=== PATIENT | female | born 1985 | race Two or more races ===

== ENCOUNTER 2023-01-06 14:30 | Emergency (ER) | payer OTHER, MEDICAID ==
[~2023-01-06] VITALS: Ht 144.8 cm; Wt 48.5 kg
[2023-01-06 17:10] LABS: BASOPHILS % (AUTO) 0.6 % (0.0-2.0); EOSINOPHILS # (AUTO) 0.1 K/uL (0.0-0.7); EOSINOPHILS % (AUTO) 1.1 % (0.0-6.0); HEMATOCRIT 27 % (33-45); HEMOGLOBIN 7.7 g/dL (11.5-14.8); LYMPHOCYTES # (AUTO) 1.7 K/uL (0.8-4.8); LYMPHOCYTES % (AUTO) 23.2 % (20.0-44.0); MEAN CORPUSCULAR HEMOGLOBIN 18 PG (26.0-33.0); MEAN CORPUSCULAR HGB CONC 29 g/dl (31.0-36.0); MEAN CORPUSCULAR VOLUME 62 fL (82-100); MONOCYTES # (AUTO) 0.5 K/uL (0.1-1.30); MONOCYTES % (AUTO) 6.4 % (2.0-12.0); NEUTROPHILS % (AUTO) 68.7 % (43.0-81.0); PLATELET COUNT (AUTO) 372 K/uL (150-450); RED BLOOD CELL COUNT(AUTO) 4.31 MIL/uL (4.0-5.2); RED CELL DISTRIBUTION WIDTH 20.3 % (11.5-15.0); WHITE BLOOD COUNT (AUTO) 7.3 K/uL (4.3-11.0)
[2023-01-06 17:32] LABS: CALCIUM, SERUM 8.7 mg/dL (8.5-10.1); CREATININE 0.6 mg/dL (0.6-1.3); POTASSIUM 4.2 mmol/L (3.5-5.1)
[2023-01-06] MEDS ORDERED: FERR-68 PO (17:55)
[2023-01-06 18:54] VITALS: BP 131/88; TEMP 98.7; O2SAT 100
[2023-01-06 18:56] LABS: ANISOCYTOSIS 1+; BAND % (MANUAL) 2 % (0.0-5.0); HYPOCHROMASIA 1+; LYMPHOCYTES % (MANUAL) 19 % (16-48); MONOCYTES % (MANUAL) 4 % (0-11.0); NEUTROPHILS % (MANUAL) 75 (42-76); OVALOCYTES 1+; PLATELET ESTIMATE ADEQUATE
[2023-01-06 18:57] LABS: TARGET CELLS RARE
== END 2023-01-06 18:54 | disposition home or self-care (01) ==
LOC: ER 14:44
DX: D64.9 Anemia, unspecified (principal); M79.10 Myalgia, unspecified site
CPT/HCPCS: 36415; 80048-TC; 85025-TC

== ENCOUNTER 2023-08-25 11:27 | Emergency (ER) | payer OTHER, MEDICAID ==
[~2023-08-25] VITALS: Ht 144.8 cm; Wt 55.8 kg
[~2023-08-25 11:27] MED LIST: FERR-68 PO
[2023-08-25 11:31] VITALS: BP 149/85; TEMP 98.4
[2023-08-25] MEDS ORDERED: CYCL5TAB PO (12:31)
[2023-08-25] MEDS ORDERED: IBUP-1955 PO (12:31)
[2023-08-25] MEDS ORDERED: LIDO30AD10 TP (12:31)
[2023-08-25] MEDS ORDERED: HYDR-4303 PO (12:31)
[2023-08-25] MEDS ORDERED: KETOROLAC TROMETHAMINE 15 MG/ML VIAL ONE (12:49)
[2023-08-25] MEDS ORDERED: HYDROCODONE/APAP 5/325MG TABLET ONE (12:50)
[2023-08-25] MEDS: KETOROLAC TROMETHAMINE 15 MG/ML VIAL IM ONE (12:55)
[2023-08-25] MEDS: HYDROCODONE/APAP 5/325MG TABLET PO ONE (12:55)
[2023-08-25 12:58] VITALS: O2SAT 98
== END 2023-08-25 12:59 | disposition home or self-care (01) ==
LOC: ER 11:29
DX: M75.32 Calcific tendinitis of left shoulder (principal); M54.12 Radiculopathy, cervical region; Z79.899 Other long term (current) drug therapy
CPT/HCPCS: 99283; 96372; J1885

== ENCOUNTER 2023-09-20 10:30 | Emergency (ER) | payer OTHER, MEDICAID ==
[~2023-09-20] VITALS: Ht 144.8 cm; Wt 62.1 kg
[~2023-09-20 10:30] MED LIST changes: +CYCL5TAB PO; +HYDR-4303 PO; +IBUP-1955 PO; +LIDO30AD10 TP
[2023-09-20 11:08] VITALS: BP 152/82; TEMP 97.9
[2023-09-20] MEDS ORDERED: ONDANSETRON HCL/PF 4 MG/2 ML VIAL ONE (11:50)
[2023-09-20] MEDS ORDERED: MORPHINE SULFATE INJ 4 MG/ML DISP.SYRIN ONE (11:51)
[2023-09-20] MEDS: MORPHINE SULFATE INJ 2 MG/ML DISP.SYRIN IV ONE (12:05)
[2023-09-20] MEDS: ONDANSETRON HCL/PF 4 MG/2 ML VIAL IV ONE (12:06)
[2023-09-20 12:27] LABS: BASOPHILS % (AUTO) 0.5 % (0.0-2.0); EOSINOPHILS % (AUTO) 0.4 % (0.0-6.0); HEMATOCRIT 36 % (33-45); HEMOGLOBIN 11.8 g/dL (11.5-14.8); LYMPHOCYTES # (AUTO) 1.5 K/uL (0.8-4.8); LYMPHOCYTES % (AUTO) 22.7 % (20.0-44.0); MEAN CORPUSCULAR HEMOGLOBIN 26 PG (26.0-33.0); MEAN CORPUSCULAR HGB CONC 33 g/dl (31.0-36.0); MEAN CORPUSCULAR VOLUME 79 fL (82-100); MONOCYTES # (AUTO) 0.5 K/uL (0.1-1.30); MONOCYTES % (AUTO) 6.9 % (2.0-12.0); NEUTROPHILS # (AUTO) 4.5 K/uL (1.8-8.9); NEUTROPHILS % (AUTO) 69.5 % (43.0-81.0); PLATELET COUNT (AUTO) 333 K/uL (150-450); RED BLOOD CELL COUNT(AUTO) 4.57 MIL/uL (4.0-5.2); RED CELL DISTRIBUTION WIDTH 16.5 % (11.5-15.0); WHITE BLOOD COUNT (AUTO) 6.5 K/uL (4.3-11.0)
[2023-09-20 12:31] LABS: PREGNANCY TEST URINE QUAL NEGATIVE (NEGATIVE)
[2023-09-20 12:31] LABS: INR 0.97 (0.91-1.10); PARTIAL THROMBOPLASTIN TIME 26.8 SEC (24.3-34.3); PROTHROMBIN TIME 10.3 SECS (9.2-11.1)
[2023-09-20 12:32] LABS: CALCIUM, SERUM 8.5 mg/dL (8.5-10.1); CREATININE 0.5 mg/dL (0.6-1.3); POTASSIUM 3.5 mmol/L (3.5-5.1)
[2023-09-20 12:47] LABS: THYROID STIMULATING HORMONE 1.27 uIU/mL (0.358-3.74)
[2023-09-20] MEDS ORDERED: METH-649 PO (13:50)
[2023-09-20] MEDS ORDERED: dexAMETHasone 4 MG TABLET ONE (13:51)
[2023-09-20] MEDS: dexAMETHasone 1 MG TABLET PO ONE (13:56)
[2023-09-20 14:03] VITALS: O2SAT 99
== END 2023-09-20 14:04 | disposition home or self-care (01) ==
LOC: ER 10:54
DX: M79.602 Pain in left arm (principal); Z87.39 Personal history of other diseases of the musculoskeletal system and connective tissue; Z88.8 Allergy status to other drugs, medicaments and biological substances
CPT/HCPCS: 99285; 96374; 93971; 96375; 85025; 80048; 82550; 84703; 36415; 84443; 85730; J8540; J2270; J2405